=== PATIENT | male | born 1970 | race Caucasian/White ===

== ENCOUNTER 2017-07-19 01:38 | Inpatient (IN) | payer MEDICARE, OTHER ==
[2017-07-19] MEDS: SODIUM CHLOR 0.9% 1000 ML INJ 1,000 ML IV (02:49)
[2017-07-19] MEDS: MORPHINE SULFATE 2 MG/ML INJ IV PUSH ×3 (03:39→11:26)
[2017-07-19] MEDS ORDERED: LACTATED RINGER'S 1000 ML INJ 1,000 ML IV (04:11)
[2017-07-19] MEDS: ACETAMINOPHEN 1000 MG/100 ML 100 ML IV ×4 (04:15→22:28)
[2017-07-19] MEDS ORDERED: MISCELLANEOUS NURSING INFORMATION XX ×2 (04:15→04:45)
[2017-07-19] MEDS ORDERED: CHLORHEXIDINE GLUCONATE 2 % 1 PACK (2 CLOTHS) TOP ×3 (04:15→05:00)
[2017-07-19] MEDS ORDERED: MORPHINE SULFATE 2 MG/ML INJ IV PUSH ×2 (04:15)
[2017-07-19] MEDS ORDERED: ONDANSETRON HCL 4 MG/2 ML VIAL IV PUSH (04:15)
[2017-07-19] MEDS: MISCELLANEOUS NURSING INFORMATION XX (05:00)
[2017-07-19] MEDS: DOCUSATE SODIUM 100 MG CAP PO ×2 (07:14→20:31)
[2017-07-19 07:22] LABS: HEMATOCRIT 40.4 % (39.0-51.0); MEAN CELL VOLUME 98.1 FL (80.0-100.0); MEAN CORPUSCULAR HEMOGLOBIN 34.1 PG (27.0-34.0); MEAN CORPUSCULAR HGB CONC 34.7 % (32.0-36.0); MEAN PLATELET VOLUME 9.6 FL (7.0-11.0); PLATELET COUNT 183 TH/MM3 (150-450); RED BLOOD COUNT 4.12 MIL/MM3 (4.50-5.90); RED CELL DISTRIBUTION WIDTH 13.4 % (11.6-17.2); REVIEW FLAG FINAL; WHITE BLOOD COUNT 9.2 TH/MM3 (4.0-11.0)
[2017-07-19] MEDS: METOPROLOL TARTRATE 25 MG TAB PO ×2 (08:13→20:31)
[2017-07-19] MEDS: FAMOTIDINE 20 MG TAB PO ×2 (08:13→20:31)
[2017-07-19] MEDS: chlordiazePOXIDE 25 MG CAP PO ×3 (08:13→15:46)
[2017-07-19] MEDS: MAGNESIUM HYDROXIDE SUSP 30 ML CUP PO ×2 (08:22→20:33)
[2017-07-19 08:32] LABS: ANION GAP 6 MEQ/L (5-15); BICARBONATE 25.8 MEQ/L (21.0-32.0); BLOOD UREA NITROGEN 11 MG/DL (7-18); CALCIUM 8.2 MG/DL (8.5-10.1); CHLORIDE 105 MEQ/L (98-107); CREATININE 0.85 MG/DL (0.60-1.30); GLOMERULAR FILTRATION RATE 96 ML/MIN (>89); GLUCOSE,RANDOM 97 MG/DL (74-106); POTASSIUM 4.3 MEQ/L (3.5-5.1); SODIUM (NA) 137 MEQ/L (136-145)
[2017-07-19] MEDS: MULTIVITAMIN INJ 10 ML, THIAMINE INJ 100 MG, FOLIC ACID INJ 1 MG in SODIUM CHLORID 0.9%... IV (09:25)
[2017-07-19] MEDS ORDERED: cloNIDine HCL 0.1 MG TAB PO (16:45)
[2017-07-20] MEDS: MORPHINE SULFATE 2 MG/ML INJ IV PUSH ×5 (01:06→20:23)
[2017-07-20] MEDS ORDERED: POVIDONE IODINE 5% (ANTISEPSIS KIT) 4 APPLICATIONS EACH NARE (01:30)
[2017-07-20] MEDS ORDERED: CHLORHEXIDINE GLUCONATE 2 % 1 PACK (2 CLOTHS) TOPICAL (01:30)
[2017-07-20] MEDS ORDERED: LACTATED RINGER'S 1000 ML IV (01:30)
[2017-07-20] MEDS ORDERED: SODIUM CHLORID 0.9% 500 ML IV (01:30)
[2017-07-20] MEDS: CHLORHEXIDINE GLUCONATE 2 % 1 PACK (2 CLOTHS) TOP (04:00)
[2017-07-20] MEDS ORDERED: CHLORHEXIDINE GLUCONATE 2 % 1 PACK (2 CLOTHS) TOP ×2 (04:00)
[2017-07-20 05:22] LABS: BASOPHIL # 0.1 TH/MM3 (0-0.2); BASOPHIL % 0.9 % (0.0-2.0); EOSINOPHIL # 0.3 TH/MM3 (0-0.4); EOSINOPHIL % 3.4 % (0.0-4.0); HEMO FLAGS DIFF FINAL; HEMOGLOBIN 13.5 GM/DL (13.0-17.0); LYMPH % 21.6 % (9.0-44.0); MEAN CORPUSCULAR HEMOGLOBIN 33.7 PG (27.0-34.0); MEAN CORPUSCULAR HGB CONC 34.7 % (32.0-36.0); MEAN PLATELET VOLUME 9.5 FL (7.0-11.0); MONO % 9.7 % (0.0-8.0); MONOCYTE # 0.9 TH/MM3 (0-0.9); NEUT % 64.4 % (16.0-70.0); PLATELET COUNT 171 TH/MM3 (150-450); RED BLOOD COUNT 4.02 MIL/MM3 (4.50-5.90); RED CELL DISTRIBUTION WIDTH 13.6 % (11.6-17.2); WHITE BLOOD COUNT 9.3 TH/MM3 (4.0-11.0)
[2017-07-20 05:23] LABS: ANION GAP 6 MEQ/L (5-15); BICARBONATE 26.2 MEQ/L (21.0-32.0); BLOOD UREA NITROGEN 11 MG/DL (7-18); CALCIUM 8.4 MG/DL (8.5-10.1); CHLORIDE 102 MEQ/L (98-107); CREATININE 0.79 MG/DL (0.60-1.30); GLOMERULAR FILTRATION RATE 105 ML/MIN (>89); GLUCOSE,RANDOM 103 MG/DL (74-106); POTASSIUM 4.3 MEQ/L (3.5-5.1); SODIUM (NA) 134 MEQ/L (136-145)
[2017-07-20] MEDS: MULTIVITAMIN INJ 10 ML, THIAMINE INJ 100 MG, FOLIC ACID INJ 1 MG in SODIUM CHLORID 0.9%... IV (05:39)
[2017-07-20] MEDS: FAMOTIDINE 20 MG TAB PO ×2 (09:00→20:20)
[2017-07-20] MEDS: MAGNESIUM HYDROXIDE SUSP 30 ML CUP PO ×2 (09:00→20:19)
[2017-07-20] MEDS: DOCUSATE SODIUM 100 MG CAP PO ×2 (09:00→20:19)
[2017-07-20] MEDS: chlordiazePOXIDE 25 MG CAP PO ×3 (09:22→18:50)
[2017-07-20] MEDS: METOPROLOL TARTRATE 25 MG TAB PO ×2 (09:22→20:22)
[2017-07-20] MEDS: KETOROLAC TROMETHAMINE 30 MG/ML (IVP) VIAL IV PUSH ×2 (12:00→18:50)
[2017-07-20] MEDS: ENOXAPARIN SODIUM 30 MG/0.3 ML SYRINGE SQ (15:58)
[2017-07-21] MEDS: KETOROLAC TROMETHAMINE 30 MG/ML (IVP) VIAL IV PUSH ×5 (00:13→23:51)
[2017-07-21] MEDS: MORPHINE SULFATE 2 MG/ML INJ IV PUSH ×2 (00:14→05:02)
[2017-07-21] MEDS: ENOXAPARIN SODIUM 30 MG/0.3 ML SYRINGE SQ ×2 (05:01→17:42)
[2017-07-21] MEDS: MULTIVITAMIN INJ 10 ML, THIAMINE INJ 100 MG, FOLIC ACID INJ 1 MG in SODIUM CHLORID 0.9%... IV (06:19)
[2017-07-21] MEDS: DOCUSATE SODIUM 100 MG CAP PO (08:36)
[2017-07-21] MEDS: MAGNESIUM HYDROXIDE SUSP 30 ML CUP PO ×2 (08:36→20:34)
[2017-07-21] MEDS: METHOCARBAMOL 500 MG TAB PO ×3 (08:36→20:35)
[2017-07-21] MEDS: FAMOTIDINE 20 MG TAB PO ×2 (08:36→20:35)
[2017-07-21] MEDS: chlordiazePOXIDE 25 MG CAP PO ×3 (08:36→17:41)
[2017-07-21] MEDS: METOPROLOL TARTRATE 25 MG TAB PO ×2 (08:36→20:35)
[2017-07-21] MEDS: fentaNYL 50 MCG/HR PATCH T-DERMAL (08:37)
[2017-07-21] MEDS: POLYETHYLENE GLYCOL 17 GM PKG PO (12:47)
[2017-07-21] MEDS: DOCUSATE SODIUM 50 MG/SENNA 8.6 MG TAB PO (20:35)
[2017-07-22] MEDS: ENOXAPARIN SODIUM 30 MG/0.3 ML SYRINGE SQ ×2 (05:29→16:17)
[2017-07-22] MEDS: KETOROLAC TROMETHAMINE 30 MG/ML (IVP) VIAL IV PUSH ×2 (05:30→12:58)
[2017-07-22] MEDS: METHOCARBAMOL 500 MG TAB PO ×2 (05:30→12:59)
[2017-07-22] MEDS: METOPROLOL TARTRATE 25 MG TAB PO (08:47)
[2017-07-22] MEDS: FAMOTIDINE 20 MG TAB PO (08:47)
[2017-07-22] MEDS: DOCUSATE SODIUM 50 MG/SENNA 8.6 MG TAB PO (08:47)
[2017-07-22] MEDS: chlordiazePOXIDE 25 MG CAP PO ×2 (08:48→12:59)
[2017-07-22] MEDS: MAGNESIUM HYDROXIDE SUSP 30 ML CUP PO (08:50)
[2017-07-22] MEDS: POLYETHYLENE GLYCOL 17 GM PKG PO (08:50)
[2017-07-24] MEDS ORDERED: REMOVE OLD DURAGESIC (FENTANYL) PATCH T-DERMAL (06:45)
== END 2017-07-22 17:50 | DRG 563 ==
LOC: NEPC 01:38 → NEDA 02:04 → N06A 03:23
DX: S82.141A Displaced bicondylar fracture of right tibia, initial encounter for closed fracture (principal); S02.81XA Fracture of other specified skull and facial bones, right side, initial encounter for closed fracture; S82.831A Other fracture of upper and lower end of right fibula, initial encounter for closed fracture; V03.90XA Pedestrian on foot injured in collision with car, pick-up truck or van, unspecified whether traffic or nontraffic accident, initial encounter; I10 Essential (primary) hypertension; F17.210 Nicotine dependence, cigarettes, uncomplicated; F41.9 Anxiety disorder, unspecified; F10.10 Alcohol abuse, uncomplicated
CPT/HCPCS: 73560; 73590; 73700; 80048; 85025; 85027; 94150; 97110-GP; 97116-GP; 97161-GP; 97167-GO; 97535-GO; 99285

== ENCOUNTER 2017-07-28 10:06 | Emergency (ER) | payer MEDICARE ==
[~2017-07-28] VITALS: Ht 172.7 cm; Wt 95.0 kg
[~2017-07-28 10:06] MED LIST: ACET325 PO; CHLO25CA PO; CLON-352 PO; DOCU1CAP39 PO; HYDR50 PO; MAGN30S PO; METH500T3 PO; METO25 PO; PERC5TAB12 PO; XARE10TA PO
[2017-07-28 10:12] VITALS: BP 142/96; PULSE 95; RESP 18; TEMP 97.6; O2SAT 97
[2017-07-28] MEDS ORDERED: CARV6.252 PO (10:23)
[2017-07-28] MEDS ORDERED: ANAF50CA PO (10:23)
[2017-07-28] MEDS ORDERED: oxyCODONE/ACETAMINOPHEN 5 MG/325 MG TAB PO ONE (10:45)
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
[2017-07-28 14:00] VITALS: BP 120/80; PULSE 86; RESP 17; O2SAT 98
[2017-07-28] MEDS ORDERED: PERC5TAB12 PO (14:09)
--- NOTE | 2017-07-28 14:09 | PD ---
HPI Chief Complaint: Pain: Acute or Chronic Time Seen by Provider: 10:27 Travel History International Travel<30 days: No Contact w/Intl Traveler<30days: No Traveled to known affect area: No History of Present Illness HPI Patient is a 47-year-old male who comes in complaining of pain to both of his legs. He was here July 20 and found to have bilateral fibula fractures as well as a tibial plateau fracture on the left. [facility], but signed himself out AMA. He comes in because he is having pain. He denies any new injury. He has not taken anything for pain. He has been walking on his leg. He denies chest pain or shortness of breath. PFSH Past Medical History Arthritis: Yes Anxiety: Yes Depression: Yes Cancer: No Cardiovascular Problems: Yes (HTN) Diminished Hearing: No Endocrine: No Genitourinary: Yes Hypertension: Yes Immune Disorder: No Kidney Stones: Yes Musculoskeletal: Yes Neurologic: No Psychiatric: Yes (OCD, SCHIZOPHRENIC) Reproductive: No Respiratory: No Schizophrenia: Yes Tetanus Vaccination: < 5 Years Influenza Vaccination: No Past Surgical History Genitourinary Surgery: Yes (HEMORRHOIDECTOMY) Other Surgery: Yes (VASECTOMY) Social History Alcohol Use: Yes ("EVERYDAY"; CASE OF BEER) Tobacco Use: Yes (1 PPD) Substance Use: Yes ( XANAX, marijuana) Allergies-Medications (Allergen,Severity, Reaction): Coded Allergies: No Known Allergies (Verified Allergy, Unknown, 07/28/17) Reported Meds & Prescriptions Reported Meds & Active Scripts Active Percocet (Oxycodone-Acetaminophen) 5-325 mg Tab 1 Tab PO Q6H PRN Qc Milk of Magnesia (Magnesium Hydroxide) 400 Mg/5 Ml Farhana 30 Ml PO BID 5 Days Dok (Docusate Sodium) 100 Mg Cap 100 Mg PO BID 5 Days Reported Carvedilol 6.25 Mg Tab 6.25 Mg PO BID Anafranil (Clomipramine HCl) 50 Mg Cap 50 Mg PO DAILY Review of Systems Except as stated in HPI: all other systems reviewed are Neg General / Constitutional: No: Fever, Chills HENT: No: Headaches, Lightheadedness Cardiovascular: No: Chest Pain or Discomfort Respiratory: No: Shortness of Breath Gastrointestinal: No: Nausea, Vomiting Genitourinary: No: Dysuria Musculoskeletal: Positive: Pain Skin: No Rash, No Change in Pigmentation Neurologic: No: Weakness, Dizziness Physical Exam Narrative GENERAL: Awake and alert, in no acute distress. SKIN: Focused skin assessment warm/dry. No wounds or signs of infection. HEAD: Atraumatic. Normocephalic. EYES: Pupils equal and round. No scleral icterus. ENT: Mucous membranes pink and moist. NECK: Trachea midline. No JVD. CARDIOVASCULAR: Regular rate and rhythm. No murmur appreciated. RESPIRATORY: No accessory muscle use. Clear to auscultation. Breath sounds equal bilaterally. GASTROINTESTINAL: Abdomen soft, non-tender, nondistended. MUSCULOSKELETAL: No obvious deformities. No clubbing. No cyanosis. Tender to palpation of the proximal fibula. Pedal pulses intact. NEUROLOGICAL: Awake and alert. No obvious cranial nerve deficits. Motor grossly within normal limits. Normal speech. PSYCHIATRIC: Appropriate mood and affect; insight and judgment normal. Data Data Last Documented VS Vital Signs Date Time Temp Pulse Resp B/P (MAP) Pulse Ox O2 Delivery O2 Flow Rate FiO2 07/28/17 18:00 07/28/17 17:31 74 17 99 Room Air 07/28/17 10:12 97.6 Orders Orders Tibia/Fibula (Ap/Lat) (07/28/17 ) Knee, Complete (4vws) (07/28/17 ) Oxycodone-Acetamin 5-325 Mg (Percocet (07/28/17 10:45) (Hub Use Only)Inp Phy Cons/Ref (07/28/17 ) (Hub Use Only)Inp Phy Cons/Ref (07/28/17 ) (Hub Use Only)Inp Phy Cons/Ref (07/28/17 ) Ed Discharge Order (07/28/17 17:32) Crutches (07/28/17 17:32) MDM Medical Decision Making Medical Screen Exam Complete: Yes Emergency Medical Condition: Yes Medical Record Reviewed: Yes Differential Diagnosis Worsening fracture versus encounter for pain medicine versus new injury Narrative Course Patient is a 47 year old male who comes in complaining of leg pain. He has known fibular fractures and tibial plateau fracture. Exam shows tenderness to the fibula. Compartments are soft. Patient given Percocet. XR performed shows no new changes. Case Management consulted for placement. Per case management, because patient signed out AMA, they are unable to place him at this time. He is given a prescription for Percocet. Advised follow-up with Dr. Moroe. Advised to return anytime for any worsening symptoms. Diagnosis Primary Impression: Tibia/fibula fracture Qualified Codes: S82.209D - Unspecified fracture of shaft of unspecified tibia , subsequent encounter for closed fracture with routine healing; S82.409D - Unspecified fracture of shaft of unspecified fibula, subsequent encounter for closed fracture with routine healing Referrals: Gareth Jackson Jr., MD call for appointment Patient Instructions: General Instructions, Leg Fracture (ED) Additional Instructions: Follow-up with Dr. Jackson as scheduled. Take pain medicine as needed. Return to the ED as needed for any worsening symptoms. Scripts Oxycodone-Acetaminophen (Percocet) 5-325 mg Tab 1 TAB PO Q6H Y for PAIN, #10 TAB 0 Refills Prov: Evelina Ta MD 07/28/17 Disposition: 01 DISCHARGE HOME Condition: Stable Evelina Ta MD Jul 28, 2017 14:09
[2017-07-28 17:31] VITALS: BP 152/70; PULSE 74; RESP 17; O2SAT 99
== END 2017-07-28 17:59 | disposition home or self-care (01) ==
LOC: NEPC 10:06
DX: S82.209D Unspecified fracture of shaft of unspecified tibia, subsequent encounter for closed fracture with routine healing (principal); S82.409D Unspecified fracture of shaft of unspecified fibula, subsequent encounter for closed fracture with routine healing; F32.9 Major depressive disorder, single episode, unspecified; I10 Essential (primary) hypertension; F20.9 Schizophrenia, unspecified; F42.9 Obsessive-compulsive disorder, unspecified; F41.9 Anxiety disorder, unspecified; F17.219 Nicotine dependence, cigarettes, with unspecified nicotine-induced disorders; X58.XXXA Exposure to other specified factors, initial encounter
CPT/HCPCS: 73564; 73590; 99284; E0113